=== PATIENT | male | born 1985 | race Two or more races ===

== ENCOUNTER 2022-03-16 01:13 | Emergency (ER) | payer SELFPAY ==
[~2022-03-16] VITALS: Ht 170.2 cm; Wt 81.8 kg
[2022-03-16] MEDS ORDERED: IOHEXOL 350 MG/ML 100ML IJ ONE (02:05)
[2022-03-16] MEDS ORDERED: SODIUM CHLORIDE 0.9% 1,000 ML IV ONE (02:15)
[2022-03-16 02:27] LABS: Basophils # (auto) 0.1 10 ^3/uL (0-0.2); Eosinophils # (auto) 0 10 ^3/uL (0-0.8); Hemoglobin 10.3 g/dL (13.5-17.5); Red Cell Distribution Width 13.3 % (11.8-14.3)
[2022-03-16 02:29] LABS: Basophils % (auto) 0.4 % (0.0-2.0); Eosinophils % (auto) 0.2 % (0.0-7.0); Hematocrit 30.6 % (41.0-53.0); Lymphocytes # (auto) 1.3 10 ^3/uL (0.4-5.4); Mean Corpuscular Hemoglobin 28.9 pg (28.0-32.0); Mean Corpuscular Hgb Conc. 33.8 g/dL (32.0-36.0); Mean Corpuscular Volume 85.4 fL (80.0-100.0); Monocytes # (auto) 1.2 10 ^3/uL (0-1.3); Monocytes % (auto) 6.2 % (0.0-12.0); Neutrophils # (auto) 16.2 10 ^3/uL (1.6-8.6); Neutrophils % (auto) 86.2 % (37.0-80.0); Nucleated Red Blood Cells % 0.1 %; Red Blood Cells 3.58 10^6/uL (4.5-5.90); White Blood Cell 18.8 10^3/uL (4.4-10.8)
[2022-03-16] MEDS ORDERED: HYDROmorphone HCL 2 MG/ML VL/or syr IV ONE ×2 (02:30→04:15)
[2022-03-16] MEDS ORDERED: ONDANSETRON HCL 4 MG/2 ML VIAL IV ONE (02:30)
[2022-03-16 02:35] LABS: Albumin 3.5 g/dL (3.4-5.0); BUN/Creatinine Ratio 14.6; Potassium 3.7 mmol/L (3.5-5.1)
[2022-03-16 02:38] LABS: Bilirubin, Total 1.2 mg/dL (0.2-1.0); Total Protein 8.2 g/dL (6.4-8.2)
[2022-03-16] MEDS ORDERED: TAMSULOSIN HYDROCHLORIDE 0.4 MG CAP PO ONE (04:15)
[2022-03-16] MEDS ORDERED: PIPERACILLIN-TAZOB 3.375GM 100 ML IV ONE (04:15)
[2022-03-16] MEDS ORDERED: CLIN-203 PO (04:19)
[2022-03-16] MEDS ORDERED: ONDA-144 PO (06:37)
[2022-03-16] MEDS ORDERED: PERCOT PO (06:37)
[2022-03-16 07:00] VITALS: BP 121/86
== END 2022-03-16 07:42 | disposition home or self-care (01) ==
LOC: ER 01:18
DX: K57.32 Diverticulitis of large intestine without perforation or abscess without bleeding (principal)
CPT/HCPCS: 36415; 74177; 80053; 83690; 85025; 96361; 96365; 96366; 96375; 99285; J1170; J2405; J2543; J7030; Q9967

== ENCOUNTER 2022-03-16 12:47 | Emergency (ER) | payer MEDICAID, OTHER ==
[~2022-03-16] VITALS: Ht 180.3 cm; Wt 83.0 kg
[~2022-03-16 12:47] MED LIST: CLIN-203 PO; ONDA-144 PO; PERCOT PO
[2022-03-16 14:04] LABS: Hemoglobin 9.5 g/dL (13.5-17.5)
[2022-03-16 14:06] LABS: Hematocrit 29.2 % (41.0-53.0); Mean Corpuscular Hemoglobin 27.8 pg (28.0-32.0); Mean Corpuscular Hgb Conc. 32.5 g/dL (32.0-36.0); Mean Corpuscular Volume 85.7 fL (80.0-100.0); Red Blood Cells 3.41 10^6/uL (4.5-5.90); Red Cell Distribution Width 13.3 % (11.8-14.3); White Blood Cell 21.7 10^3/uL (4.4-10.8)
[2022-03-16 14:24] LABS: Albumin 3.3 g/dL (3.4-5.0); Potassium 3.8 mmol/L (3.5-5.1)
[2022-03-16 14:28] LABS: BUN/Creatinine Ratio 13.4; Bilirubin, Total 2.1 mg/dL (0.2-1.0); Total Protein 7.9 g/dL (6.4-8.2)
[2022-03-16] MEDS ORDERED: HYDROcodone-ACET 10/325MG TAB PO ONE (14:45)
[2022-03-16 14:54] LABS: Band Neutrophils % (manual) 0; Basophils % (manual) 0 (0.0-2.0); Blast Cells 0; Eosinophils % (manual) 0 (0-7); Metamyelocytes % 0; Myelocytes % 0; Promyelocytes % 0; Reactive Lymphocytes 0
[2022-03-16] MEDS ORDERED: HYDROmorphone HCL 2 MG/ML VL/or syr IV ONE (15:45)
[2022-03-16] MEDS ORDERED: ONDANSETRON HCL 4 MG/2 ML VIAL IV ONE ×2 (15:45→18:15)
[2022-03-16 16:02] LABS: Lymphocytes % (manual) 3 (10.0-50.0); Monocytes % (manual) 6 (0-12)
[2022-03-16] MEDS: CALCIUM GLUC 1,000mg/50ml-NS 50 ML IV SCH ×2 (16:02→17:02)
[2022-03-16] MEDS ORDERED: cefTRIAXone 1GM/50ML D5W 50 ML IV ONE (16:15)
[2022-03-16] MEDS ORDERED: SODIUM CHLORIDE 0.9% 1,000 ML IV ONE ×4 (16:15→23:30)
[2022-03-16] MEDS ORDERED: metroNIDAZOLE 500MG/100ML 100 ML IV ONE (16:15)
[2022-03-16] MEDS ORDERED: MORPHINE SULFATE 4 MG/ML SYR/VIAL IV ONE (18:15)
[2022-03-16] MEDS ORDERED: MORPHINE SULFATE INJ 2 MG/ml SYRG IV ONE (21:00)
[2022-03-16] MEDS ORDERED: fentaNYL CITRATE 100 MCG/2 ML VL IV ONE (23:30)
[2022-03-16 23:56] VITALS: BP 115/73
== END 2022-03-16 23:53 | disposition short-term general hospital (02) ==
LOC: ER 12:47
DX: A41.9 Sepsis, unspecified organism (principal); E83.51 Hypocalcemia; L02.91 Cutaneous abscess, unspecified; Z20.822 Contact with and (suspected) exposure to COVID-19
CPT/HCPCS: 36415; 74176; 80053; 83605; 85007; 85027; 87040; 87426; 93005; 96361; 96365; 96368; 96375; 96376; 99285; J0610; J0696; J1170; J2270; J2405; J3010; J3490; J7030